=== PATIENT | female | born 1980 | race American Indian/Alaskan Native ===

== ENCOUNTER 2016-11-16 06:28 | Emergency (ER) | payer SELFPAY ==
[2016-11-16 09:03] VITALS: BP 132/92
[2016-11-16] MEDS ORDERED: DELTASONE PO ONE (09:45)
[2016-11-16] MEDS ORDERED: BENADRYL PO ONE (09:45)
--- NOTE | 2016-11-16 09:57 | Emergency Department Report ---
Entered by MARIMAR DRIVER, acting as scribe for OSMAN BARNARD PA. ED Rash HPI - HPI Chief Complaint: Skin Rash Stated Complaint: POSS REACTION TO INSECT BITE Time Seen by Provider: 11/16/16 09:05 Duration: 1 Day Location: Back, Other (bilateral shoulders, cheeks, bilateral arms) Suspected Cause: Insect (bed bugs although she physically didn't see any bugs) Rash Symptoms: Yes Itching, No Facial Swelling, No Tongue/Oral Swelling, No Breathing Difficulties, No Choking Sensation, No Wheezing/Dyspnea, No Peeling, No Blistering, No Fever, No Lightheaded, No Malaise, No Myalgias Severity: mild Other History: 36 y/o female with no PMHx, presents with possible bites from bed bugs to the bilateral arms, back, shoulders and cheeks that started 3 nights ago after staying at a Motel. Sx includes itching but pt denies n/v. She notes that she didn't physically see any bugs. Pt denies Hx of skin disorder. No additional Sx. ED Review of Systems ROS: Stated complaint: POSS REACTION TO INSECT BITE Other details as noted in HPI Comment: All other systems reviewed and negative Constitutional: denies: chills, fever Respiratory: denies: cough, shortness of breath Cardiovascular: denies: chest pain Gastrointestinal: denies: abdominal pain, nausea, vomiting Skin: rash (cheeks, bilateral shoulders, bilateral arms, back), other ( erythematous) Neurological: denies: headache, numbness ED Past Medical Hx - Past Medical History Previous Medical History?: No Hx Hypertension: No Hx CVA: No Hx Heart Attack/AMI: No Hx Congestive Heart Failure: No Hx Diabetes: No Hx Deep Vein Thrombosis: No Hx Pulmonary Embolism: No Hx GERD: No Hx Liver Disease: No Hx Renal Disease: No Hx of Cancer: No Hx Sickle Cell Disease: No Hx Arthritis: No Hx Headaches / Migraines: No Hx Seizures: No Hx Kidney Stones: No Hx Psychiatric Treatment: No Hx Asthma: No Hx COPD: No Hx Tuberculosis: No Hx Dementia: No Hx HIV: No - Surgical History Past Surgical History?: Yes Hx Coronary Stent: No Hx Open Heart Surgery: No Hx Pacemaker: No Hx Internal Defibrillator: No Hx Cholecystectomy: No Hx Appendectomy: No Hx Breast Surgery: No Additional Surgical History: - Social History Smoking Status: Current Some Day Smoker Substance Use Type: None - Medications Home Medications: Home Medications Medication Instructions Recorded Confirmed Last Taken Type Diclofenac Sodium 75 mg PO BID #20 tablet. 05/08/15 Unknown Rx Calamine/Zinc 8-8% [Calamine] 1 applic TP BID #1 bottle 11/16/16 Unknown Rx diphenhydrAMINE [Benadryl CAP] 25 mg PO QHS #25 capsule 11/16/16 Unknown Rx predniSONE [Deltasone] 10 mg PO QDAY #4 tab 11/16/16 Unknown Rx Rash Exam - Exam General: Vital signs noted. No distress. Alert and acting appropriately. GENERAL: Patient is alert and oriented x 3. No apparent distress, normal gait, atraumatic. SKIN: Warm and dry. Generalized, raised, single , erythematous lesions surrounding bilateral arms, back, bilateral shoulders and cheeks HEENT: No Periorbital Edema, No Conjuctival Injection, No Chemosis, No Perioral Edema, No Tongue Edema, No Uvular Edema, No Compromised Airway, No Drooling Lungs: Yes Good Air Exchange (Normal Breath Sounds), No Wheezes, No Ronchi, No Stridor, No Cough, No Labored Respirations, No Retractions, No Use of Accessory Muscles, No Other Abnormal Lung Sounds Heart: Yes Regular, No Murmur Skin: Yes Maculopapular Rash, Yes Erythema, No Urticarial Rash, No Morbilliform rash, No Bulla(e), No Excoriations, No Weeping, No Tenderness, No Edema, No Encrustations Other: Positive: Abdomen Normal, Neurologic Normal, Musculoskeletal Normal ED Course Vital Signs 11/16/16 11/16/16 06:45 09:02 Temperature 99.3 F 98.2 F Pulse Rate 75 75 Respiratory 16 18 Rate Blood Pressure 144/77 Blood Pressure 132/92 [Right] O2 Sat by Pulse 100 98 Oximetry ED Medical Decision Making - Medical Decision Making 36-year-old female presents with possible bedbug bites/insect bites. ED course: Patient received Benadryl prednisone ED. Disposition sent home on calamine lotion to apply all of her body to help with itching, as well as Benadryl Discussed the patient to ensure she washes her clothes and belongings warm liquids for taken into her home. Vital signs are normal. Patient in no acute distress. Critical care attestation.: If time is entered above; I have spent that time in minutes in the direct care of this critically ill patient, excluding procedure time. ED Disposition Clinical Impression: Bed bug bite Qualifiers: Encounter type: initial encounter Qualified Code(s): W57.XXXA - Bitten or stung by nonvenomous insect and other nonvenomous arthropods, initial encounter Insect bite Qualifiers: Encounter type: initial encounter Qualified Code(s): W57.XXXA - Bitten or stung by nonvenomous insect and other nonvenomous arthropods, initial encounter Disposition: - TO HOME OR SELFCARE Is pt being admited?: No Does the pt Need Aspirin: No Condition: Stable Instructions: Insect Bite or Sting (ED), Acute Rash (ED), Zinc Oxide (On the skin) Prescriptions: diphenhydrAMINE [Benadryl CAP] 25 mg PO QHS #25 capsule Calamine/Zinc 8-8% [Calamine] 1 applic TP BID #1 bottle predniSONE [Deltasone] 10 mg PO QDAY #4 tab Referrals: PRIMARY CAREMD [Primary Care Provider] - 3-5 Days KHUSHBU MULTANI MD [Referring] - 3-5 Days [facility] [Outside] - 3-5 Days [facility] [Outside] - 3-5 Days [facility] [Outside] - 3-5 Days Forms: Work/School Release Form(ED) Time of Disposition: 09:51 This documentation as recorded by the VILLA doty RYAN,accurately reflects the service I personally performed and the decisions made by ,OSMAN BARNARD PA.
== END 2016-11-16 10:15 | disposition home or self-care (01) ==
LOC: ED 06:28
DX: T14.8 Other injury of unspecified body region (principal); F17.200 Nicotine dependence, unspecified, uncomplicated; W57.XXXA Bitten or stung by nonvenomous insect and other nonvenomous arthropods, initial encounter; Y93.89 Activity, other specified; Y99.8 Other external cause status; Y92.59 Other trade areas as the place of occurrence of the external cause
CPT/HCPCS: 99282; J7512

== ENCOUNTER 2018-01-26 09:47 | Emergency (ER) | payer OTHER ==
--- NOTE | 2018-01-26 11:46 | Emergency Department Report ---
Minor Respiratory - HPI Chief Complaint: Sore Throat Stated Complaint: BODY COLD/STRIP THROAT Time Seen by Provider: 01/26/18 11:07 Duration: 3 Days Pain Location: Throat, Nose Severity: moderate Minor Respiratory: Yes Rhinorrhea, Yes Sore Throat, Yes Able to Tolerate Fluids , Yes Ear Pain, Yes Cough, Yes Sick Contacts, Yes Fever, No Hemoptysis, No Chest Pain, No Shortness of Breath Other History: This is a 37-year-old female who presents with a sore throat and body aches for 2-3 days. Patient states it is very painful to swallow. She is also some discomfort right ear with coughing and generalized body aches. Patient states symptoms initially started it felt like something stuck in her throat. She is able to tolerate liquids and solids. Patient states she took [place] cold once last night but no improvement of symptoms. Patient denies chest pain, shortness of breath, nausea or vomiting, abdominal pain. ED Review of Systems ROS: Stated complaint: BODY COLD/STRIP THROAT Other details as noted in HPI Constitutional: fever. denies: chills ENT: throat pain, congestion. denies: ear pain Respiratory: cough. denies: shortness of breath, wheezing Cardiovascular: denies: chest pain, palpitations Gastrointestinal: denies: abdominal pain, nausea, diarrhea Musculoskeletal: myalgia (generalized body ache). denies: back pain, joint swelling, arthralgia Skin: denies: rash, lesions Neurological: denies: headache, weakness, paresthesias Psychiatric: denies: anxiety, depression ED Past Medical Hx - Past Medical History Previous Medical History?: No Hx Hypertension: No Hx CVA: No Hx Heart Attack/AMI: No Hx Congestive Heart Failure: No Hx Diabetes: No Hx Deep Vein Thrombosis: No Hx Pulmonary Embolism: No Hx GERD: No Hx Liver Disease: No Hx Renal Disease: No Hx Sickle Cell Disease: No Hx Arthritis: No Hx Headaches / Migraines: No Hx Seizures: No Hx Kidney Stones: No Hx Psychiatric Treatment: No Hx Asthma: No Hx COPD: No Hx Tuberculosis: No Hx Dementia: No Hx HIV: No - Surgical History Hx Coronary Stent: No Hx Open Heart Surgery: No Hx Pacemaker: No Hx Internal Defibrillator: No Hx Cholecystectomy: No Hx Appendectomy: No Hx Breast Surgery: No Additional Surgical History: - Social History Smoking Status: Current Some Day Smoker Substance Use Type: None - Medications Home Medications: Home Medications Medication Instructions Recorded Confirmed Last Taken Type Diclofenac Sodium 75 mg PO BID #20 tablet. 05/08/15 Unknown Rx Calamine/Zinc 8-8% [Calamine] 1 applic TP BID #1 bottle 11/16/16 Unknown Rx diphenhydrAMINE [Benadryl CAP] 25 mg PO QHS #25 capsule 11/16/16 Unknown Rx predniSONE [Deltasone] 10 mg PO QDAY #4 tab 11/16/16 Unknown Rx Benzonatate [Tessalon Perle] 100 mg PO DAILY #30 capsule 01/26/18 Unknown Rx Cetirizine HCl [Zyrtec] 10 mg PO DAILY #30 tablet 01/26/18 Unknown Rx Fluticasone [Flonase] 1 spray NS QDAY #1 bottle 01/26/18 Unknown Rx Guaifenesin/Pseudoephedrne HCl 1 each PO BID #14 tab.er.12h 01/26/18 Unknown Rx [Kro Mucus D ER 600-60 mg Tab] Minor Respiratory Exam - Exam General: Vital signs noted. No distress. Alert and acting appropriately. HEENT: Yes Pharyngeal Erythema (posterior ), Yes Moist Mucous Membranes, Yes Rhinorrhea (turbinates mildly congested with clear discharge), No Pharyngeal Exudates, No Conjuctival Injection, No Frontal Tenderness, No Maxillary Tenderness Ear: Neither TM Bulge, Neither TM Erythema, Neither EAC Pain, Neither EAC Discharge Neck: Yes Adenopathy (enlarged right cervical F normal limits, mobile, nontender ), Yes Supple Lungs: Yes Good Air Exchange, Yes Cough, No Wheezes, No Ronchi, No Stridor, No Labored Respirations, No Retractions, No Use of Accessory Muscles, No Other Abnormal Lung Sounds Heart: Yes Regular, No Murmur Abdomen: Yes Normal Bowel Sounds, No Tenderness, No Peritoneal Signs Skin: No Rash, No Edema Neurologic: Alert and oriented, no deficits. Musculoskeletal: Unremarkable. ED Course Vital Signs 01/26/18 09:56 Temperature 99.1 F Pulse Rate 83 Respiratory 18 Rate Blood Pressure 134/80 O2 Sat by Pulse 100 Oximetry ED Medical Decision Making - Medical Decision Making 37 y.o. female that presents with URI symptoms. Patient examined by me and stable. No distress noted. Vitals normal. Obtained rapid strep and flu both negative. Reviewed results with patient. Discharged home stable. Start benzonatate, Flonase, ceterizine, and mucix DM. Follow up with Primary Care Provider in 2-3 days. Critical care attestation.: If time is entered above; I have spent that time in minutes in the direct care of this critically ill patient, excluding procedure time. ED Disposition Clinical Impression: Upper respiratory disease, Sore throat Disposition: TO HOME OR SELFCARE Is pt being admited?: No Does the pt Need Aspirin: No Condition: Stable Instructions: Upper Respiratory Infection (ED), Cold Symptoms (ED) Additional Instructions: Increase fluid intake and rest. Wash hands frequently. Continue taking Tylenol or ibuprofen to control fever. F/U with Primary Care Provider. Return to ER if fever, SOB, or difficulty breathing after 48 hours of supportive care. Prescriptions: Benzonatate [Tessalon Perle] 100 mg PO DAILY #30 capsule Cetirizine HCl [Zyrtec] 10 mg PO DAILY #30 tablet Fluticasone [Flonase] 1 spray NS QDAY #1 bottle Guaifenesin/Pseudoephedrne HCl [Kro Mucus D ER 600-60 mg Tab] 1 each PO BID #14 tab.er.12h Referrals: [facility] [Outside] - 3-5 Days [facility] [Outside] - 3-5 Days [facility] [Outside] - 3-5 Days Forms: Work/School Release Form(ED) Time of Disposition: 12:35 Print Language: KOREAN
[2018-01-26 12:45] VITALS: BP 135/81
== END 2018-01-26 12:44 | disposition home or self-care (01) ==
LOC: ED 09:47
DX: J06.9 Acute upper respiratory infection, unspecified (principal); F17.200 Nicotine dependence, unspecified, uncomplicated
CPT/HCPCS: 87116; 87400; 87430; 99283

== ENCOUNTER 2018-02-18 17:43 | Emergency (ER) | payer OTHER ==
--- NOTE | 2018-02-18 18:57 | XRay Report ---
FINAL REPORT EXAM: XR TOE(S) 2+V LT HISTORY: trauma, pain TECHNIQUE: Left forefoot toes three views PRIORS: None. FINDINGS: There is acute traumatic oblique fracture through the midshaft of the proximal phalanx 3rd toe with out significant displacement. 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 No additional acute bony findings are identified. No radiopaque foreign bodies are observed. Joint spaces are within normal limits. IMPRESSION: Oblique nondisplaced fracture through the proximal phalanx of the 4th toe No additional acute findings
--- NOTE | 2018-02-18 21:31 | Emergency Department Report ---
ED Lower Extremity HPI - General Chief Complaint: Extremity Problem,Nontraumatic Stated Complaint: KNEE/FOOT PAIN Time Seen by Provider: 02/18/18 21:24 Source: patient Mode of arrival: Ambulatory Limitations: No Limitations - History of Present Illness Initial Comments: 38-year-old female comes in complaining of left great toe and swelling to bilateral extremities. Patient states she stubbed her great toe yesterday. Patient has no past medical history currently takes no medications on a daily basis and has no known drug allergies. Last menstrual period was 02/12/2018. -: days(s) (1) Injury: Toes: Left Type of Injury: blunt Severity scale (0 -10): 7 Improves With: nothing Worsens With: weight bearing, movement Context: direct blow - Related Data Previous Rx's Medication Instructions Recorded Last Taken Type Diclofenac Sodium 75 mg PO BID #20 tablet. 05/08/15 Unknown Rx Calamine/Zinc 8-8% [Calamine] 1 applic TP BID #1 bottle 11/16/16 Unknown Rx diphenhydrAMINE [Benadryl CAP] 25 mg PO QHS #25 capsule 11/16/16 Unknown Rx predniSONE [Deltasone] 10 mg PO QDAY #4 tab 11/16/16 Unknown Rx Benzonatate [Tessalon Perle] 100 mg PO DAILY #30 capsule 01/26/18 Unknown Rx Cetirizine HCl [Zyrtec] 10 mg PO DAILY #30 tablet 01/26/18 Unknown Rx Fluticasone [Flonase] 1 spray NS QDAY #1 bottle 01/26/18 Unknown Rx Guaifenesin/Pseudoephedrne HCl 1 each PO BID #14 tab.er.12h 01/26/18 Unknown Rx [Kro Mucus D ER 600-60 mg Tab] Ibuprofen [Motrin 800 MG tab] 800 mg PO Q8HR PRN #30 tablet 02/18/18 Unknown Rx Allergies Allergy/AdvReac Type Severity Reaction Status Date / Time No Known Allergies Allergy Verified 01/26/18 09:56 ED Review of Systems ROS: Stated complaint: KNEE/FOOT PAIN Other details as noted in HPI Comment: All other systems reviewed and negative ED Past Medical Hx - Past Medical History Hx Hypertension: No Hx CVA: No Hx Heart Attack/AMI: No Hx Congestive Heart Failure: No Hx Diabetes: No Hx Deep Vein Thrombosis: No Hx Pulmonary Embolism: No Hx GERD: No Hx Liver Disease: No Hx Renal Disease: No Hx Sickle Cell Disease: No Hx Arthritis: No Hx Headaches / Migraines: No Hx Seizures: No Hx Kidney Stones: No Hx Psychiatric Treatment: No Hx Asthma: No Hx COPD: No Hx Tuberculosis: No Hx Dementia: No Hx HIV: No - Surgical History Hx Coronary Stent: No Hx Open Heart Surgery: No Hx Pacemaker: No Hx Internal Defibrillator: No Hx Cholecystectomy: No Hx Appendectomy: No Hx Breast Surgery: No Additional Surgical History: - Social History Smoking Status: Current Some Day Smoker Substance Use Type: None - Medications Home Medications: Home Medications Medication Instructions Recorded Confirmed Last Taken Type Diclofenac Sodium 75 mg PO BID #20 tablet.dr 05/08/15 Unknown Rx Calamine/Zinc 8-8% [Calamine] 1 applic TP BID #1 bottle 11/16/16 Unknown Rx diphenhydrAMINE [Benadryl CAP] 25 mg PO QHS #25 capsule 11/16/16 Unknown Rx predniSONE [Deltasone] 10 mg PO QDAY #4 tab 11/16/16 Unknown Rx Benzonatate [Tessalon Perle] 100 mg PO DAILY #30 capsule 01/26/18 Unknown Rx Cetirizine HCl [Zyrtec] 10 mg PO DAILY #30 tablet 01/26/18 Unknown Rx Fluticasone [Flonase] 1 spray NS QDAY #1 bottle 01/26/18 Unknown Rx Guaifenesin/Pseudoephedrne HCl 1 each PO BID #14 tab.er.12h 01/26/18 Unknown Rx [Kro Mucus D ER 600-60 mg Tab] Ibuprofen [Motrin 800 MG tab] 800 mg PO Q8HR PRN #30 tablet 02/18/18 Unknown Rx ED Physical Exam - General Limitations: No Limitations General appearance: alert, in no apparent distress - Head Head exam: Present: atraumatic, normocephalic - Eye Eye exam: Present: EOMI - ENT ENT exam: Present: mucous membranes moist - Expanded Lower Extremity Exam Left Hip exam: Present: normal inspection, full ROM Upper Leg exam: Present: normal inspection Knee exam: Present: normal inspection Lower Leg exam: Present: normal inspection Ankle exam: Present: normal inspection Foot/Toe exam: Present: tenderness (third toe), swelling (mild). Absent: laceration, ecchymosis, deformity Neuro vascular tendon exam: Present: no vascular compromise. Absent: pulse deficit, motor deficit, sensory deficit ED Course Vital Signs 02/18/18 18:06 Temperature 98.7 F Pulse Rate 86 Blood Pressure 120/68 O2 Sat by Pulse 99 Oximetry ED Lower Extremity MDM - Radiology Data Radiology results: report reviewed FINAL REPORT EXAM: XR TOE(S) 2+V LT HISTORY: trauma, pain TECHNIQUE: Left forefoot toes three views PRIORS: None. FINDINGS: There is acute traumatic oblique fracture through the midshaft of the proximal phalanx 3rd toe with out significant displacement. 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 No additional acute bony findings are identified. No radiopaque foreign bodies are observed. Joint spaces are within normal limits. IMPRESSION: Oblique nondisplaced fracture through the proximal phalanx of the 4th toe No additional acute findings Transcribed By: JACQUE Dictated By: LEO JEROME MD Electronically Authenticated By: LEO JEROME MD Signed Date/Time: 02/18/181855 DD/ 55 TD/TT: 02/18/181855 - Medical Decision Making Patient has been evaluated by this provider in fast track. Toe x-ray shows a third proximal phalange fracture. Yuriy tape the toe Referral to orthopedist Discharged home on ibuprofen Critical care attestation.: If time is entered above; I have spent that time in minutes in the direct care of this critically ill patient, excluding procedure time. ED Disposition Clinical Impression: Toe fracture, left Qualifiers: Encounter type: sequela Toe: lesser toe Fracture type: closed Phalanx: proximal Fracture alignment: nondisplaced Qualified Code(s): S92.515S - Nondisplaced fracture of proximal phalanx of left lesser toe(s), sequela Disposition: -01 TO HOME OR SELFCARE Is pt being admited?: No Does the pt Need Aspirin: No Condition: Stable Instructions: Toe Fracture (ED) Additional Instructions: Please take pain medication as prescribed. Please follow up with orthopedist if symptoms persist or gets worse. Prescriptions: Ibuprofen [Motrin 800 MG tab] 800 mg PO Q8HR PRN #30 tablet PRN Reason: Pain , Severe (7-10) Referrals: PRIMARY CARE, [Primary Care Provider] - 3-5 Days Forms: Work/School Release Form(ED), Accompanied Note
[2018-02-18] MEDS ORDERED: PERCOCET 5/325 PO ONE (21:33)
[2018-02-18 21:47] VITALS: BP 128/72
== END 2018-02-18 21:47 | disposition home or self-care (01) ==
LOC: ED 17:43
DX: S92.515S Nondisplaced fracture of proximal phalanx of left lesser toe(s), sequela (principal); F17.200 Nicotine dependence, unspecified, uncomplicated; X58.XXXS Exposure to other specified factors, sequela

== ENCOUNTER 2018-08-14 22:34 | Emergency (ER) | payer OTHER ==
--- NOTE | 2018-08-14 22:37 | Emergency Department Report ---
Stated Complaint: KNEES LEFT ELBOW PAIN - HPI History of Present Illness: ac joint pain l elbow b knee hx arthritis states she knows because of her weight mse completed MSE screening note: Focused history and physical exam performed. Due to findings the following was ordered: ED Disposition for MSE Condition: Stable
[2018-08-14 22:42] VITALS: BP 136/78
[2018-08-14] MEDS ORDERED: TORADOL IM ONE (23:05)
--- NOTE | 2018-08-14 23:30 | Emergency Department Report ---
ED General Adult HPI - General Chief complaint: Extremity Injury, Upper Stated complaint: KNEES LEFT ELBOW PAIN Time Seen by Provider: 08/14/18 22:37 Source: patient Mode of arrival: Ambulatory Limitations: No Limitations - History of Present Illness Initial comments: Patient's 8-year-old -[place] female who presents for acute exacerbation of bilateral knee pain pain and pain is exacerbated with job duties as aching pain is relieved by rest and elevation is no numbness no tingling or weakness no paralysis Onset/Timin -: week(s) Location: lower extremity Severity scale (0 -10): 8 Quality: aching Consistency: constant Improves with: rest Worsens with: movement Associated Symptoms: other (aching) Treatments Prior to Arrival: other (rest ) - Related Data Previous Rx's Medication Instructions Recorded Last Taken Type Diclofenac Sodium 75 mg PO BID #20 tablet. 05/08/15 Unknown Rx Calamine/Zinc 8-8% [Calamine] 1 applic TP BID #1 bottle 11/16/16 Unknown Rx diphenhydrAMINE [Benadryl CAP] 25 mg PO QHS #25 capsule 11/16/16 Unknown Rx predniSONE [Deltasone] 10 mg PO QDAY #4 tab 11/16/16 Unknown Rx Benzonatate [Tessalon Perle] 100 mg PO DAILY #30 capsule 01/26/18 Unknown Rx Cetirizine HCl [Zyrtec] 10 mg PO DAILY #30 tablet 01/26/18 Unknown Rx Fluticasone [Flonase] 1 spray NS QDAY #1 bottle 01/26/18 Unknown Rx Guaifenesin/Pseudoephedrne HCl 1 each PO BID #14 tab.er.12h 01/26/18 Unknown Rx [Kro Mucus D ER 600-60 mg Tab] Ibuprofen [Motrin 800 MG tab] 800 mg PO Q8HR PRN #30 tablet 02/18/18 Unknown Rx Menthol/Camphor [[place] 1 applicatio TP QID PRN #1 tube 08/14/18 Unknown Rx Ointment] Naproxen 500 mg PO BID PRN #30 tablet 08/14/18 Unknown Rx predniSONE [Deltasone] 40 mg PO QDAY 5 Days #10 tab 08/14/18 Unknown Rx Allergies Allergy/AdvReac Type Severity Reaction Status Date / Time No Known Allergies Allergy Verified 01/26/18 09:56 ED Review of Systems ROS: Stated complaint: KNEES LEFT ELBOW PAIN Other details as noted in HPI Constitutional: denies: chills, fever Eyes: denies: eye pain, eye discharge, vision change ENT: denies: ear pain, throat pain Respiratory: denies: cough, shortness of breath, wheezing Cardiovascular: denies: chest pain, palpitations Endocrine: no symptoms reported Gastrointestinal: denies: abdominal pain, nausea, diarrhea Genitourinary: denies: urgency, dysuria, discharge Musculoskeletal: joint swelling, arthralgia Skin: denies: rash, lesions Neurological: denies: headache, weakness, paresthesias Psychiatric: denies: anxiety, depression Hematological/Lymphatic: denies: easy bleeding, easy bruising ED Past Medical Hx - Past Medical History Previous Medical History?: No Hx Hypertension: No Hx CVA: No Hx Heart Attack/AMI: No Hx Congestive Heart Failure: No Hx Diabetes: No Hx Deep Vein Thrombosis: No Hx Pulmonary Embolism: No Hx GERD: No Hx Liver Disease: No Hx Renal Disease: No Hx Sickle Cell Disease: No Hx Arthritis: No Hx Headaches / Migraines: No Hx Seizures: No Hx Kidney Stones: No Hx Psychiatric Treatment: No Hx Asthma: No Hx COPD: No Hx Tuberculosis: No Hx Dementia: No Hx HIV: No Additional medical history: Obesity - Surgical History Past Surgical History?: Yes Hx Coronary Stent: No Hx Open Heart Surgery: No Hx Pacemaker: No Hx Internal Defibrillator: No Hx Cholecystectomy: No Hx Appendectomy: No Hx Breast Surgery: No Additional Surgical History: - Social History Smoking Status: Never Smoker Substance Use Type: None - Medications Home Medications: Home Medications Medication Instructions Recorded Confirmed Last Taken Type Diclofenac Sodium 75 mg PO BID #20 tablet. 05/08/15 Unknown Rx Calamine/Zinc 8-8% [Calamine] 1 applic TP BID #1 bottle 11/16/16 Unknown Rx diphenhydrAMINE [Benadryl CAP] 25 mg PO QHS #25 capsule 11/16/16 Unknown Rx predniSONE [Deltasone] 10 mg PO QDAY #4 tab 11/16/16 Unknown Rx Benzonatate [Tessalon Perle] 100 mg PO DAILY #30 capsule 01/26/18 Unknown Rx Cetirizine HCl [Zyrtec] 10 mg PO DAILY #30 tablet 01/26/18 Unknown Rx Fluticasone [Flonase] 1 spray NS QDAY #1 bottle 01/26/18 Unknown Rx Guaifenesin/Pseudoephedrne HCl 1 each PO BID #14 tab.er.12h 01/26/18 Unknown Rx [Kro Mucus D ER 600-60 mg Tab] Ibuprofen [Motrin 800 MG tab] 800 mg PO Q8HR PRN #30 tablet 02/18/18 Unknown Rx Menthol/Camphor [[place] 1 applicatio TP QID PRN #1 tube 08/14/18 Unknown Rx Ointment] Naproxen 500 mg PO BID PRN #30 tablet 08/14/18 Unknown Rx predniSONE [Deltasone] 40 mg PO QDAY 5 Days #10 tab 08/14/18 Unknown Rx ED Physical Exam - General Limitations: No Limitations (I) General appearance: alert (from [place] is currently is is), in no apparent distress - Head Head exam: Present: atraumatic, normocephalic - Eye Eye exam: Present: normal appearance, PERRL, EOMI Pupils: Present: normal accommodation - ENT ENT exam: Present: mucous membranes moist - Neck Neck exam: Present: normal inspection - Respiratory Respiratory exam: Present: normal lung sounds bilaterally. Absent: respiratory distress - Cardiovascular Cardiovascular Exam: Present: regular rate - GI/Abdominal GI/Abdominal exam: Present: soft, normal bowel sounds - Rectal Rectal exam: Present: deferred (is) - Extremities Exam Extremities exam: Present: normal inspection, full ROM, tenderness (bialt ant knees ), normal capillary refill, joint swelling ( is). Absent: pedal edema, calf tenderness - Expanded Lower Extremity Exam Right Knee exam: Present: full ROM, tenderness, swelling, pain w/ pronation/supination, full knee extension. Absent: abrasion, laceration, ecchymosis, deformity, crepidus, dislocation, erythema, effusion, posterior draw sign, pain/laxity with valgus, pain/laxity with varus Lower Leg exam: Present: full ROM, tenderness Foot/Toe exam: Present: full ROM, tenderness Neuro vascular tendon exam: Absent: motor deficit, sensory deficit, tendon deficit Gait: Positive: observed and normal Left Knee exam: Present: full ROM, tenderness, swelling, pain w/ pronation/supination, full knee extension. Absent: abrasion, laceration, ecchymosis, deformity, crepidus, dislocation, erythema, effusion, posterior draw sign, pain/laxity with valgus, pain/laxity with varus Lower Leg exam: Present: full ROM, tenderness Ankle exam: Present: full ROM, tenderness Foot/Toe exam: Present: full ROM, tenderness Neuro vascular tendon exam: Absent: motor deficit, sensory deficit, tendon deficit Gait: Positive: observed and normal ED Course Vital Signs 08/14/18 22:41 Temperature 98 F Pulse Rate 72 Respiratory 18 Rate Blood Pressure 136/78 O2 Sat by Pulse 97 Oximetry ED Medical Decision Making - Medical Decision Making this is acute on chronic knee pain with no new fall injury or trauma plan nsaids steriods analgesic balm follow up with pcp in 2-3 days pt verbalized agreement and understanding of discharge plan. Critical care attestation.: If time is entered above; I have spent that time in minutes in the direct care of this critically ill patient, excluding procedure time. ED Disposition Clinical Impression: Knee pain Qualifiers: Chronicity: chronic Laterality: bilateral Qualified Code(s): M25.561 - Pain in right knee; M25.562 - Pain in left knee; G89.29 - Other chronic pain Arthralgia Qualifiers: Joint pain location: knee Laterality: bilateral Qualified Code(s): M25.561 - Pain in right knee; M25.562 - Pain in left knee Disposition: TO HOME OR SELFCARE Is pt being admited?: No Does the pt Need Aspirin: No Condition: Stable Instructions: Arthralgia (ED) Prescriptions: predniSONE [Deltasone] 40 mg PO QDAY 5 Days #10 tab Naproxen 500 mg PO BID PRN #30 tablet PRN Reason: pain Menthol/Camphor [Lot[place] Ointment] 1 applicatio TP QID PRN #1 tube PRN Reason: pain Referrals: BETH LANE MD [Staff Physician] - 3-5 Days [facility] [Outside] - 3-5 Days Forms: Work/School Release Form(ED) Time of Disposition: 23:39
== END 2018-08-15 00:05 | disposition home or self-care (01) ==
LOC: ED 22:34
DX: M25.561 Pain in right knee (principal); M25.562 Pain in left knee; G89.29 Other chronic pain
CPT/HCPCS: 96372; 99282; J1885

== ENCOUNTER 2018-10-26 18:14 | Emergency (ER) | payer OTHER ==
--- NOTE | 2018-10-26 18:20 | Emergency Department Report ---
HPI - General Chief Complaint: Allergic Reaction Time Seen by Provider: 10/26/18 18:20 ED Past Medical Hx - Past Medical History Previous Medical History?: No Hx Hypertension: No Hx CVA: No Hx Heart Attack/AMI: No Hx Congestive Heart Failure: No Hx Diabetes: No Hx Deep Vein Thrombosis: No Hx Pulmonary Embolism: No Hx GERD: No Hx Liver Disease: No Hx Renal Disease: No Hx of Cancer: No Hx Sickle Cell Disease: No Hx Arthritis: No Hx Headaches / Migraines: No Hx Seizures: No Hx Kidney Stones: No Hx Psychiatric Treatment: No Hx Asthma: No Hx COPD: No Hx Tuberculosis: No Hx Dementia: No Hx HIV: No Additional medical history: Obesity - Surgical History Past Surgical History?: Yes Hx Coronary Stent: No Hx Open Heart Surgery: No Hx Pacemaker: No Hx Internal Defibrillator: No Hx Cholecystectomy: No Hx Appendectomy: No Hx Breast Surgery: No Additional Surgical History: - Social History Smoking Status: Current Some Day Smoker Substance Use Type: None - Medications Home Medications: Home Medications Medication Instructions Recorded Confirmed Last Taken Type Diclofenac Sodium 75 mg PO BID #20 tablet. 05/08/15 Unknown Rx Calamine/Zinc 8-8% [Calamine] 1 applic TP BID #1 bottle 11/16/16 Unknown Rx diphenhydrAMINE [Benadryl CAP] 25 mg PO QHS #25 capsule 11/16/16 Unknown Rx predniSONE [Deltasone] 10 mg PO QDAY #4 tab 11/16/16 Unknown Rx Benzonatate [Tessalon Perle] 100 mg PO DAILY #30 capsule 01/26/18 Unknown Rx Cetirizine HCl [Zyrtec 10mg tab] 10 mg PO DAILY #30 tablet 01/26/18 Unknown Rx Fluticasone [Flonase] 1 spray NS QDAY #1 bottle 01/26/18 Unknown Rx Guaifenesin/Pseudoephedrne HCl 1 each PO BID #14 tab.er.12h 01/26/18 Unknown Rx [Kro Mucus D ER 600-60 mg Tab] Ibuprofen [Motrin 800 MG tab] 800 mg PO Q8HR PRN #30 tablet 02/18/18 Unknown Rx Menthol/Camphor [[place] 1 applicatio TP QID PRN #1 tube 08/14/18 Unknown Rx Ointment] Naproxen 500 mg PO BID PRN #30 tablet 08/14/18 Unknown Rx predniSONE [Deltasone] 40 mg PO QDAY 5 Days #10 tab 08/14/18 Unknown Rx Clindamycin [Clindamycin CAP] 300 mg PO Q8H #21 cap 10/06/18 Unknown Rx diphenhydrAMINE [Benadryl CAP] 25 mg PO Q6HR PRN #20 capsule 10/06/18 Unknown Rx predniSONE [Deltasone] 20 mg PO QDAY #5 tab 10/06/18 Unknown Rx traMADol [Ultram] 50 mg PO Q6HR PRN #12 tablet 10/06/18 Unknown Rx ED Review of Systems ROS: Stated complaint: ALLERGIC REACTION TO SHRIMP Other details as noted in HPI Critical care attestation.: If time is entered above; I have spent that time in minutes in the direct care of this critically ill patient, excluding procedure time. ED Disposition Condition: Stable
--- NOTE | 2018-10-26 18:21 | Emergency Department Report ---
Blank Doc - Documentation Documentation: This is a 38-year-old female that presents with generalized itching after eating shrimp. Denies any rash. Denies any angioedema. This initial assessment/diagnostic orders/clinical plan/treatment(s) is/are subject to change based on patient's health status, clinical progression and re- assessment by fellow clinical providers in the ED. Further treatment and workup at subsequent clinical providers discretion. Patient/guardians urged not to elope from the ED as their condition may be serious if not clinically assessed and managed. Initial orders include: 1- Patient sent to [facility] for further evaluation and treatment
[2018-10-26] MEDS ORDERED: PEPCID PO ONE (19:01)
[2018-10-26] MEDS ORDERED: DECADRON PO ONE (19:01)
--- NOTE | 2018-10-26 20:31 | Emergency Department Report ---
ED Allergic Reaction HPI - General Chief complaint: Allergic Reaction Stated complaint: ALLERGIC REACTION TO SHRIMP Time Seen by Provider: 10/26/18 18:20 Source: patient Mode of arrival: Ambulatory Limitations: No Limitations - History of Present Illness MD Complaint: allergic reaction (sitting straight up and developed a rash and pruritus diffusely over her body. No odynophagia or dysphagia. No fevers, chills, sweats. No nausea or vomiting.) -: This evening Symptoms: rash, itching Severity: moderate Treatment Prior to Arrival: benadryl Previous Allergy History: none - Related Data Previous Rx's Medication Instructions Recorded Last Taken Type Diclofenac Sodium 75 mg PO BID #20 tablet. 05/08/15 Unknown Rx Calamine/Zinc 8-8% [Calamine] 1 applic TP BID #1 bottle 11/16/16 Unknown Rx diphenhydrAMINE [Benadryl CAP] 25 mg PO QHS #25 capsule 11/16/16 Unknown Rx predniSONE [Deltasone] 10 mg PO QDAY #4 tab 11/16/16 Unknown Rx Benzonatate [Tessalon Perle] 100 mg PO DAILY #30 capsule 01/26/18 Unknown Rx Cetirizine HCl [Zyrtec 10mg tab] 10 mg PO DAILY #30 tablet 01/26/18 Unknown Rx Fluticasone [Flonase] 1 spray NS QDAY #1 bottle 01/26/18 Unknown Rx Guaifenesin/Pseudoephedrne HCl 1 each PO BID #14 tab.er.12h 01/26/18 Unknown Rx [Kro Mucus D ER 600-60 mg Tab] Ibuprofen [Motrin 800 MG tab] 800 mg PO Q8HR PRN #30 tablet 02/18/18 Unknown Rx Menthol/Camphor [[place] 1 applicatio TP QID PRN #1 tube 08/14/18 Unknown Rx Ointment] Naproxen 500 mg PO BID PRN #30 tablet 08/14/18 Unknown Rx predniSONE [Deltasone] 40 mg PO QDAY 5 Days #10 tab 08/14/18 Unknown Rx Clindamycin [Clindamycin CAP] 300 mg PO Q8H #21 cap 10/06/18 Unknown Rx diphenhydrAMINE [Benadryl CAP] 25 mg PO Q6HR PRN #20 capsule 10/06/18 Unknown Rx predniSONE [Deltasone] 20 mg PO QDAY #5 tab 10/06/18 Unknown Rx traMADol [Ultram] 50 mg PO Q6HR PRN #12 tablet 10/06/18 Unknown Rx Famotidine [Pepcid] 40 mg PO DAILY #14 tablet 10/26/18 Unknown Rx Mometasone Furoate [[place]] 45 gm TP BID #1 cream..g. 10/26/18 Unknown Rx hydrOXYzine HCL [Atarax] 25 mg PO Q6HR PRN #20 tablet 10/26/18 Unknown Rx predniSONE [Deltasone] 50 mg PO QDAY #5 tab 10/26/18 Unknown Rx Allergies Allergy/AdvReac Type Severity Reaction Status Date / Time No Known Allergies Allergy Verified 10/06/18 13:06 ED Review of Systems ROS: Stated complaint: ALLERGIC REACTION TO SHRIMP Other details as noted in HPI Constitutional: denies: chills, fever Eyes: denies: eye pain, eye discharge, vision change ENT: denies: ear pain, throat pain Respiratory: denies: cough, shortness of breath, wheezing Cardiovascular: denies: chest pain, palpitations Endocrine: no symptoms reported Gastrointestinal: denies: abdominal pain, nausea, diarrhea Genitourinary: denies: urgency, dysuria, discharge Musculoskeletal: denies: back pain, joint swelling, arthralgia Skin: rash. denies: lesions Neurological: denies: headache, weakness, paresthesias Psychiatric: denies: anxiety, depression Hematological/Lymphatic: denies: easy bleeding, easy bruising ED Past Medical Hx - Past Medical History Previous Medical History?: No Hx Hypertension: No Hx CVA: No Hx Heart Attack/AMI: No Hx Congestive Heart Failure: No Hx Diabetes: No Hx Deep Vein Thrombosis: No Hx Pulmonary Embolism: No Hx GERD: No Hx Liver Disease: No Hx Renal Disease: No Hx of Cancer: No Hx Sickle Cell Disease: No Hx Arthritis: No Hx Headaches / Migraines: No Hx Seizures: No Hx Kidney Stones: No Hx Psychiatric Treatment: No Hx Asthma: No Hx COPD: No Hx Tuberculosis: No Hx Dementia: No Hx HIV: No Additional medical history: Obesity - Surgical History Past Surgical History?: Yes Hx Coronary Stent: No Hx Open Heart Surgery: No Hx Pacemaker: No Hx Internal Defibrillator: No Hx Cholecystectomy: No Hx Appendectomy: No Hx Breast Surgery: No Additional Surgical History: - Social History Smoking Status: Never Smoker - Medications Home Medications: Home Medications Medication Instructions Recorded Confirmed Last Taken Type Diclofenac Sodium 75 mg PO BID #20 tablet.dr 05/08/15 Unknown Rx Calamine/Zinc 8-8% [Calamine] 1 applic TP BID #1 bottle 11/16/16 Unknown Rx diphenhydrAMINE [Benadryl CAP] 25 mg PO QHS #25 capsule 11/16/16 Unknown Rx predniSONE [Deltasone] 10 mg PO QDAY #4 tab 11/16/16 Unknown Rx Benzonatate [Tessalon Perle] 100 mg PO DAILY #30 capsule 01/26/18 Unknown Rx Cetirizine HCl [Zyrtec 10mg tab] 10 mg PO DAILY #30 tablet 01/26/18 Unknown Rx Fluticasone [Flonase] 1 spray NS QDAY #1 bottle 01/26/18 Unknown Rx Guaifenesin/Pseudoephedrne HCl 1 each PO BID #14 tab.er.12h 01/26/18 Unknown Rx [Kro Mucus D ER 600-60 mg Tab] Ibuprofen [Motrin 800 MG tab] 800 mg PO Q8HR PRN #30 tablet 02/18/18 Unknown Rx Menthol/Camphor [[place] 1 applicatio TP QID PRN #1 tube 08/14/18 Unknown Rx Ointment] Naproxen 500 mg PO BID PRN #30 tablet 08/14/18 Unknown Rx predniSONE [Deltasone] 40 mg PO QDAY 5 Days #10 tab 08/14/18 Unknown Rx Clindamycin [Clindamycin CAP] 300 mg PO Q8H #21 cap 10/06/18 Unknown Rx diphenhydrAMINE [Benadryl CAP] 25 mg PO Q6HR PRN #20 capsule 10/06/18 Unknown Rx predniSONE [Deltasone] 20 mg PO QDAY #5 tab 10/06/18 Unknown Rx traMADol [Ultram] 50 mg PO Q6HR PRN #12 tablet 10/06/18 Unknown Rx Famotidine [Pepcid] 40 mg PO DAILY #14 tablet 10/26/18 Unknown Rx Mometasone Furoate [[place]] 45 gm TP BID #1 cream..g. 10/26/18 Unknown Rx hydrOXYzine HCL [Atarax] 25 mg PO Q6HR PRN #20 tablet 10/26/18 Unknown Rx predniSONE [Deltasone] 50 mg PO QDAY #5 tab 10/26/18 Unknown Rx ED Physical Exam - General Limitations: No Limitations General appearance: alert, in no apparent distress - Head Head exam: Present: atraumatic, normocephalic - Eye Eye exam: Present: normal appearance, PERRL, EOMI - ENT ENT exam: Present: mucous membranes moist - Neck Neck exam: Present: normal inspection - Respiratory Respiratory exam: Present: normal lung sounds bilaterally. Absent: respiratory distress - Cardiovascular Cardiovascular Exam: Present: regular rate, normal rhythm. Absent: systolic murmur, diastolic murmur, rubs, gallop - GI/Abdominal GI/Abdominal exam: Present: soft, normal bowel sounds - Extremities Exam Extremities exam: Present: normal inspection - Back Exam Back exam: Present: normal inspection - Neurological Exam Neurological exam: Present: alert, oriented X3 - Psychiatric Psychiatric exam: Present: normal affect, normal mood - Skin Skin exam: Present: warm, dry, intact, normal color, urticaria. Absent: rash, cyanosis, diaphoretic, petechiae, pallor, abrasion ED Course Vital Signs 10/26/18 18:23 Temperature 98.1 F Pulse Rate 85 Respiratory 20 Rate Blood Pressure 134/72 O2 Sat by Pulse 97 Oximetry Critical care attestation.: If time is entered above; I have spent that time in minutes in the direct care of this critically ill patient, excluding procedure time. ED Disposition Clinical Impression: Allergic reaction Disposition: [id number]-01 TO HOME OR SELFCARE Is pt being admited?: No Does the pt Need Aspirin: No Condition: Stable Instructions: Urticaria (ED), Allergies (ED) Prescriptions: hydrOXYzine HCL [Atarax] 25 mg PO Q6HR PRN #20 tablet PRN Reason: Itching predniSONE [Deltasone] 50 mg PO QDAY #5 tab Mometasone Furoate [Elocon] 45 gm TP BID #1 cream..g. Famotidine [Pepcid] 40 mg PO DAILY #14 tablet Referrals: DOMINIC COLBY [Other] - 3-5 Days
[2018-10-26 20:59] VITALS: BP 122/71
== END 2018-10-26 20:59 | disposition home or self-care (01) ==
LOC: ED 18:14
DX: T78.40XA Allergy, unspecified, initial encounter (principal); Y92.89 Other specified places as the place of occurrence of the external cause
CPT/HCPCS: 99282; J1100